=== PATIENT | male | born 1990 | race Caucasian/White ===

== ENCOUNTER 2023-10-16 13:32 | Emergency (ER) | payer BC ==
[2023-10-16 13:53] VITALS: TEMP 98
[2023-10-16] MEDS: SODIUM CHLORIDE 0.9% 1,000 ML IV STA (14:13)
--- NOTE | 2023-10-16 14:15 | ED ---
General Adult HPI <Felipe Solomon - Last Filed: 10/16/23 16:02> - General Source: patient, family Mode of arrival: ambulatory Limitations: no limitations <Ricky Weiner - Last Filed: 10/21/23 07:13> - General Chief complaint: Dizziness Stated complaint: Dizziness Time Seen by Provider: 10/16/23 13:59 - History of Present Illness Initial comments: Dictation was produced using [employer] dictation software. please excuse any grammatical, word or spelling errors. Chief Complaint: 33-year-old male presents emergency department for dizziness History of Present Illness: Patient 33-year-old male presents emergency department with episodes of dizziness. Patient states for the last couple days he has been having almost daily episodes of dizziness. Patient states that a year ago when his son was born he had a similar episode that led to episode of tonic-clonic activity. States that when his son was born during the delivery process patient had an episode where he passed out and had tonic-clonic convulsions. Apparently was there and noticed that patient had a postictal state for several minutes. Patient has not sought any medical attention for this. Started to have recurrence of episodes of the dizziness that he felt prior to the seizure. Patient did not have any seizure recently. He was seen in urgent care few days ago and was given hydroxyzine. The ROS documented in this emergency department record has been reviewed and confirmed by me. Those systems with pertinent positive or negative responses have been documented in the HPI. All other systems are other negative and/or noncontributory. (Ricky Weiner) - Related Data Home Medications Medication Instructions Recorded Confirmed Fish Oil/Dha/Epa [Fish Oil 1,200 2 cap PO BID 10/16/23 10/16/23 mg Fish Oil] Multivitamin [Multivitamins Adult 2 tab PO DAILY 10/16/23 10/16/23 Gummies] hydrOXYzine HCL [Atarax] 25 mg PO TID PRN 10/16/23 10/16/23 Allergies Allergy/AdvReac Type Severity Reaction Status Date / Time No Known Allergies Allergy Verified 10/16/23 15:42 Review of Systems ROS Other: All systems not noted in ROS Statement are negative. <Felipe Solomon - Last Filed: 10/16/23 16:02> ROS Other: All systems not noted in ROS Statement are negative. <RegineRicky D - Last Filed: 10/21/23 07:13> ROS Statement: Those systems with pertinent positive or pertinent negative responses have been documented in the HPI. Past Medical History History of Any Multi-Drug Resistant Organisms: None Reported Past Surgical History: Hernia Repair Past Psychological History: No Psychological Hx Reported Smoking Status: Never smoker Past Alcohol Use History: Occasional Past Drug Use History: None Reported <Ricky Weiner - Last Filed: 10/21/23 07:13> General Exam Limitations: no limitations <Ricky Weiner - Last Filed: 10/21/23 07:13> - General Exam Comments Initial Comments: PHYSICAL EXAM: General Impression: Alert and oriented x3, not in acute distress HEENT: Normocephalic atraumatic, extra-ocular movements intact, pupils equal and reactive to light bilaterally, mucous membranes moist. Cardiovascular: Heart regular rate and rhythm Chest: Able to complete full sentences, no retractions, no tachypnea Abdomen: abdomen soft, non-tender, non-distended, no organomegaly Musculoskeletal: Pulses present and equal in all extremities, no peripheral edema Motor: no focal deficits noted Neurological: CN II-XII grossly intact, no focal motor or sensory deficits noted Skin: Intact with no visualized rashes Psych: Normal affect and mood (Ricky Weiner) Course Vital Signs 10/16/23 10/16/23 13:40 16:04 Temperature 98 F Pulse Rate 74 64 Respiratory 18 12 Rate Blood Pressure 135/74 106/53 O2 Sat by Pulse 98 99 Oximetry EKG Findings - EKG Comments: EKG Findings:: My EKG interpretation: Ventricular rate 64, sinus rhythm,. 153, cures 94, QTc 368. No HI prolongation, no QTC prolongation, no ST or T-wave isaías nges noted. EKG compared to [default value] showing no changes. Overall, this EKG is unremarkable <Ricky Weiner - Last Filed: 10/21/23 07:13> Medical Decision Making - Lab Data Result diagrams: 10/16/23 14:39 10/16/23 14:39 <Felipe Solomon - Last Filed: 10/16/23 16:02> - Lab Data Result diagrams: 10/16/23 14:39 10/16/23 14:39 <RegineRicky Renetta - Last Filed: 10/21/23 07:13> - Medical Decision Making I received this patient as a signout pending the results of the CAT scan. I then discussed results with the patient. I did recommend further workup of the episodes of dizziness which she states have been going back for years now. I recommended neurology follow-up for possible MRI and for EEG as well as possible tilt table testing. Also discussed return parameters. Diagnosis/symptom? @ -[Dizziness Acute, or Chronic, or Acute on Chronic? @ -[Acute on chronic Uncomplicated (without systemic symptoms) or Complicated (systemic symptoms)? @ -[Uncomplicated Side effects of treatment? @ -[No] Exacerbation, Progression, or Severe Exacerbation? @ -[No] Poses a threat to life or bodily function? How? (Chest pain, USA, CT, pneumonia, PE, COPD, DKA, ARF, appy, cholecystitis, CVA, Diverticulitis, Homicidal, Suicidal, threat to staff... and all critical care pts) @ -[No] (Felipe Solomon) Was pt. sent in by a medical professional or institution (, PA, BUSINESS MACHINE OPERATOR, urgent care, hospital, or usp...) When possible be specific @ -No Did you speak to anyone other than the patient for history (EMS, parent, family, police, friend...)? What history was obtained from this source @ -No Did you review nursing and triage notes (agree or disagree)? Why? @ -I reviewed and agree with nursing and triage notes Were old charts reviewed (outside hosp., previous admission, EMS record, old EKG, old radiological studies, urgent care reports/EKG's, usp records)? Report findings @ -No old charts were reviewed Differential Diagnosis (chest pain, altered mental status, abdominal pain women, abdominal pain men, vaginal bleeding, musculoskeletal, weakness, fever, dyspnea, syncope, headache, dizziness, GI bleed, back pain, seizure, CVA, palpatations, mental health)? @ -Differential Dizziness: Benign paroxysmal positional Vertigo, Menieres disease, otitis media, acoustic neuroma, vertebrobasilar insufficiency, cerebellar stroke, encephalitis, hypovolemic, arrhythmia, coronary artery syndrome, anemia, this is not meant to be an all-inclusive list EKG interpreted by me (3pts min.). @ -See above X-rays interpreted by me (1pt min.). @ -None done CT interpreted by me (1pt min.). @ -None done U/S interpreted by me (1pt. min.). @ -None done What testing was considered but not performed or refused? (CT, X-rays, U/S, labs)? Why? @ -None What meds were considered but not given or refused? Why? @ -None Did you discuss the management of the patient with other professionals (professionals i.e. , PA, BUSINESS MACHINE OPERATOR, lab, RT, psych nurse, manager social responsibility, energy audit advisor, teacher, chief contract officer, case work aide)? Give summary @ -No Was smoking cessation discussed for >3mins.? @ -No Was critical care preformed (if so, how long)? @ -No Were there social determinants of health that impacted care today? How? (Homelessness, low income, unemployed, alcoholism, drug addiction, transportation, low edu. Level, literacy, decrease access to med. care, skilled nursing, rehab)? @ -No Was there de-escalation of care discussed even if they declined (Discuss DNR or withdrawal of care, Hospice)? DNR status @ -No What co-morbidities impacted this encounter? (DM, HTN, Smoking, COPD, CAD, Cancer, CVA, ARF, Chemo, Hep., AIDS, mental health diagnosis, sleep apnea, morbid obesity)? @ -None Was patient admitted / discharged? Hospital course, mention meds given and route, prescriptions, significant lab abnormalities, going to OR and other pertinent info. @ -33-year-old male presents emergency department dizziness. His symptoms are suspicious for an aura. Vital signs upon arrival are within acceptable limits. Patient care signed out to Dr. Farah at 3:00 PM for follow-up of CT brain and blood work Undiagnosed new problem with uncertain prognosis? @ -No Drug Therapy requiring intensive monitoring for toxicity (Heparin, Nitro, Insulin, Cardizem)? @ -No Were any procedures done? @ -No Diagnosis/symptom? Acute, or Chronic, or Acute on Chronic? Uncomplicated (without systemic symptoms) or Complicated (systemic symptoms)? @ -Dizziness (Ricky Weiner) - Lab Data Lab Results 10/16/23 10/16/23 Range/Units 14:39 14:39 WBC 5.7 (3.8-10.6) k/uL RBC 4.94 (4.30-5.90) m/uL Hgb 14.9 (13.0-17.5) gm/dL Hct 43.3 (39.0-53.0) % MCV 87.8 (80.0-100.0) fL MCH 30.2 (25.0-35.0) pg MCHC 34.4 (31.0-37.0) g/dL RDW 12.7 (11.5-15.5) % Plt Count 235 (150-450) k/uL MPV 7.0 Neutrophils % 57 % Lymphocytes % 34 % Monocytes % 4 % Eosinophils % 3 % Basophils % 1 % Neutrophils # 3.2 (1.3-7.7) k/uL Lymphocytes # 1.9 (1.0-4.8) k/uL Monocytes # 0.3 (0-1.0) k/uL Eosinophils # 0.2 (0-0.7) k/uL Basophils # 0.1 (0-0.2) k/uL Sodium 140 (137-145) mmol/L Potassium 4.2 (3.5-5.1) mmol/L Chloride 109 H (98-107) mmol/L Carbon Dioxide 24 (22-30) mmol/L Anion Gap 7 mmol/L BUN 15 (9-20) mg/dL Creatinine 0.77 (0.66-1.25) mg/dL Est GFR (CKD-EPI)AfAm >90 (>60 ml/min/1.73 sqM) Est GFR (CKD-EPI)NonAf >90 (>60 ml/min/1.73 sqM) Glucose 101 H (74-99) mg/dL Calcium 10.1 (8.4-10.2) mg/dL Magnesium 2.1 (1.6-2.3) mg/dL Disposition Is patient prescribed a controlled substance at d/c from ED?: No <Felipe Solomon - Last Filed: 10/16/23 16:02> <Ricky Weiner - Last Filed: 10/21/23 07:13> Clinical Impression: Dizziness Disposition: HOME SELF-CARE Condition: Good Instructions (If sedation given, give patient instructions): Dizziness (ED) Referrals: Nonstaff,Physician [Primary Care Provider] - 1-2 days Keira Celis MD [REFERRING] - 1-2 days
[2023-10-16 15:04] LABS: Basophils # (A) 0.1 k/uL (0-0.2); Basophils % (A) 1 %; Eosinophils # (A) 0.2 k/uL (0-0.7); Eosinophils % (A) 3 %; HCT 43.3 % (39.0-53.0); HGB 14.9 gm/dL (13.0-17.5); Lymphocytes # (A) 1.9 k/uL (1.0-4.8); Lymphocytes % (A) 34 %; MCH 30.2 pg (25.0-35.0); MCHC 34.4 g/dL (31.0-37.0); MCV 87.8 fL (80.0-100.0); Monocytes # (A) 0.3 k/uL (0-1.0); Monocytes % (A) 4 %; Neutrophils # (A) 3.2 k/uL (1.3-7.7); Neutrophils % (A) 57 %; Platelet Count 235 k/uL (150-450); RBC 4.94 m/uL (4.30-5.90); RDW 12.7 % (11.5-15.5); WBC 5.7 k/uL (3.8-10.6)
[2023-10-16 15:14] LABS: African American GFR (CKD) >90 (>60 ml/min/1.73 sqM); Anion Gap 7 mmol/L; Blood Urea Nitrogen 15 mg/dL (9-20); Calcium 10.1 mg/dL (8.4-10.2); Carbon Dioxide 24 mmol/L (22-30); Chloride 109 mmol/L (98-107); Glucose 101 mg/dL (74-99); Magnesium 2.1 mg/dL (1.6-2.3); Non-African American GFR(CKD) >90 (>60 ml/min/1.73 sqM); Potassium 4.2 mmol/L (3.5-5.1); Sodium 140 mmol/L (137-145)
--- NOTE | 2023-10-16 15:17 | CT ---
EXAMINATION TYPE: CT brain wo con DATE OF EXAM: 10/16/2023 COMPARISON: None INDICATION: dizziness for the past week and a half with mild headache. DLP: 1109.4 mGycm, Automated exposure control for dose reduction was used. CONTRAST: None CT of the brain is performed utilizing 3 mm thick sections through the posterior fossa and 3 mm thick sections through the remaining calvarium. Study is performed within 24 hours of arrival to the hosp ital. No abnormal hyperdensity is present to suggest an acute intracranial hemorrhage. No mass lesion is evident. No acute infarcts are evident. Ventricles and sulci are appropriate for the patient age. Paranasal sinuses and mastoid air cells within the [id number] are clear. IMPRESSION: 1. No acute intracranial process. Follow-up MRI can be performed as clinically indicated
[2023-10-16 16:41] VITALS: BP 106/53; PULSE 64; RESP 12
== END 2023-10-16 16:05 | disposition home or self-care (01) ==
LOC: EC 13:32
DX: R42 Dizziness and giddiness (principal)
CPT/HCPCS: 36415; 70450; 80048; 83735; 85025; 93005; 96360; 99284

== ENCOUNTER → 2023-10-31 | Outpatient (CLI) | payer BC ==
--- NOTE | 2023-11-01 02:58 | EEG ---
ELECTROENCEPHALOGRAM REPORT CLINICAL HISTORY: This is a 33-year-old gentleman with reported history of seizure, who has dizziness, blurred vision, and anxious. The video EEG is obtained to evaluate for seizure epileptiform activity. RELEVANT MEDICATION: Reported as unknown medication on the EEG report. EEG TYPE: A routine 21-channel EEG with video using the 10/20 electrode placement system. DESCRIPTION: Wakefulness is only obtained. During awake state, the posterior-dominant rhythm consists of [id number] voltage of 10-11 hertz activity that is well modulated, well sustained. There is no physiological stage 2 sleep architecture. There is no focal slowing. Interictal and ictal is none. ACTIVATION PROCEDURE: Photic stimulation does not evoke a posterior driving response. There is no abnormality during the photic stimulation. Hyperventilation is not performed. CLINICAL INTERPRETATION: This is a normal routine EEG. There is no focal slowing, epileptiform discharge, or seizure on the EEG. A normal routine EEG does not rule out underlying epilepsy. Clinical correlation is recommended. MMHARVINDER / IJN: [id number] /
== END ==
LOC: NEUROMAIN 07:56
PROVIDERS: ATTEND Psychiatry & Neurology Neurology
DX: G40.009 Localization-related (focal) (partial) idiopathic epilepsy and epileptic syndromes with seizures of localized onset, not intractable, without status epilepticus (principal); R55 Syncope and collapse
CPT/HCPCS: 95816

== ENCOUNTER → 2023-11-11 | Outpatient (CLI) | payer BC ==
--- NOTE | 2023-11-12 13:21 | CA ---
Transthoracic Echo Report Name: Lv Slaughter Age: 33 Gender: M : 1990 Exam Date: 11/11/2023 16:20 Exam Location: [place] [facility] Ht (in): 67 Wt (lb): 185 Ordering Physician: Briseyda Joe MD Attending/Referring Phys: Briseyda Joe MD Barrel Builder Brandee Wong RDCS Procedure CPT: Indications: R55 SYNCOPE AND COLLAPSE G40.009 LOCAL-REL IDIO E Cardiac Hx: Technical Quality: Fair Contrast 1: Total Dose (mL): Contrast 2: Total Dose (mL): MEASUREMENTS (Male / Female) Normal Values 2D ECHO LV Diastolic Diameter PLAX 4.7 cm 4.2 - 5.9 / 3.9 - 5.3 cm LV Systolic Diameter PLAX 3.1 cm IVS Diastolic Thickness 1.2 cm 0.6 - 1.0 / 0.6 - 0.9 cm LVPW Diastolic Thickness 1.0 cm 0.6 - 1.0 / 0.6 - 0.9 cm LV Relative Wall Thickness 0.5 RV Internal Dim ED PLAX 2.8 cm LA Volume 42.4 cm??? 18 - 58 / 22 - 52 cm??? LA Volume Index 21.0 cm???/m??? 16 - 28 cm???/m??? M-MODE Aortic Root Diameter MM 2.9 cm LA Systolic Diameter MM 3.3 cm LA Ao Ratio MM 1.2 AV Cusp Separation MM 2.4 cm DOPPLER AV Peak Velocity 119.8 cm/s AV Peak Gradient 5.7 mmHg AV Mean Velocity 82.1 cm/s AV Mean Gradient 3.0 mmHg AV Velocity Time Integral 25.3 cm LVOT Peak Velocity 97.6 cm/s LVOT Peak Gradient 3.8 mmHg LVOT Velocity Time Integral 19.2 cm MV Area PHT 2.9 cm??? Mitral E Point Velocity 102.0 cm/s Mitral A Point Velocity 44.5 cm/s Mitral E to A Ratio 2.3 MV Deceleration Time 262.6 ms MV E' Velocity 12.0 cm/s Mitral E to MV E' Ratio 8.5 TR Peak Velocity 226.0 cm/s TR Peak Gradient 20.4 mmHg Right Ventricular Systolic Press 25.1 mmHg FINDINGS Left Ventricle Normal Left ventricular size, wall thickness, systolic function with no obvious regional wall motion abnormalities. Normal Left ventricular diastolic filling pattern. Left ventricular ejection fraction is estimated at 55-60 %. Right Ventricle Normal right ventricular size and function. Right ventricular systolic pressure within normal limits. Right Atrium Normal right atrial size. Left Atrium Normal left atrial size. Mitral Valve Structurally normal mitral valve. Mild mitral annular calcification. No mitral stenosis, regurgitation or prolapse. Aortic Valve Trileaflet aortic valve. No aortic valve stenosis or regurgitation. Tricuspid Valve Structurally normal tricuspid valve. Mild tricuspid regurgitation. Pulmonic Valve Structurally normal pulmonic valve. Trace pulmonic regurgitation. Pericardium No pericardial effusion. Aorta Normal size aortic root and proximal ascending aorta. CONCLUSIONS Normal LV systolic function Previewed by: Dr. Heriberto Hoffman MD (Electronically Signed) Final Date: 12 Nov 2023 13:20
== END | disposition home or self-care (01) ==
LOC: RADECHMAIN 16:07
PROVIDERS: ATTEND Psychiatry & Neurology Neurology
DX: R55 Syncope and collapse (principal); G40.009 Localization-related (focal) (partial) idiopathic epilepsy and epileptic syndromes with seizures of localized onset, not intractable, without status epilepticus
CPT/HCPCS: 93306

== ENCOUNTER → 2023-12-12 | Day surgery (SDC) | payer BC ==
[2023-12-12] MEDS: SODIUM CHLORIDE 0.9% 1,000 ML IV SCH (06:52)
[2023-12-12 06:58] VITALS: BP 126/67; PULSE 62; RESP 16; TEMP 97.6
--- NOTE | 2023-12-12 15:46 | P.EPPROC ---
- EP Procedure Note Electrophysiology Procedure Note: Diagnosis Recurrent syncope Twelve-lead EKG shows sinus mechanism heart rate 50 beats minute with occasional PACs normal OH narrow QRS normal ST segments Patient underwent tilt table test per protocol Baseline blood pressure 121/65 mmHg baseline heart rate 60 beats a minute Patient was tilted upright in angle of 70 degrees per protocol There was no change in heart rate or blood pressure. He had feelings of anxiety without any arrhythmias or change in blood pressure or heart rate At the end of the procedure he was laid supine No evidence for postural tachycardia, no evidence for neurocardiogenic syncope Impression sinus mechanism heart rate 50 beats minute with PACs Normal heart rate and blood pressure response to upright tilting
== END ==
LOC: CATHEP 05:55
PROVIDERS: ATTEND Internal Medicine Clinical Cardiac Electrophysiology
DX: R55 Syncope and collapse (principal)
CPT/HCPCS: 93660